=== PATIENT | male | born 1985 | race African-American/Black ===

== ENCOUNTER 2017-06-16 02:02 | Emergency (ER) | payer MEDICAID ==
[~2017-06-16] VITALS: Ht 170.2 cm; Wt 109.0 kg
[2017-06-16] MEDS ORDERED: SODIUM CHLORIDE 0.9% 1,000 ML IV ONE (02:31)
[2017-06-16] MEDS ORDERED: ONDANSETRON HCL 4MG/2ML VIAL IV STA (02:31)
[2017-06-16] MEDS ORDERED: KETOROLAC 30MG/ML VIAL IV STA (02:31)
[2017-06-16 02:48] LABS: HEMATOCRIT. 45.1 % (42.0-52.0); HEMOGLOBIN. 15.8 g/dL (14.0-18.0); MEAN CORPUSCULAR HEMOGLOBIN 30.6 pg (28.0-32.0); MEAN CORPUSCULAR VOLUME 87.3 fL (80.0-94.0); PLATELET 306 x1000/uL (130-400); RED BLOOD CELL COUNT 5.17 mill/uL (4.7-6.1)
[2017-06-16 03:00] LABS: CARBON DIOXIDE 26 mEq/L (21-32); CHLORIDE 105 mEq/L (98-107)
[2017-06-16 03:27] LABS: PLATELET ESTIMATE NORMAL
[2017-06-16 06:00] VITALS: BP 120/80
[2017-06-16] MEDS ORDERED: SODIUM CHLORIDE 0.9% 10ML VIAL ONE (13:07)
[2017-06-16] MEDS ORDERED: IOHEXOL-300 100 ML BOTTLE ONE (13:07)
== END 2017-06-16 06:00 | disposition home or self-care (01) ==
LOC: ER 02:09
DX: M54.2 Cervicalgia (principal); R10.9 Unspecified abdominal pain; V49.88XA Car occupant (driver) (passenger) injured in other specified transport accidents, initial encounter; Y93.89 Activity, other specified; Y92.410 Unspecified street and highway as the place of occurrence of the external cause; Y99.8 Other external cause status
CPT/HCPCS: 36415; 72125; 74177; 80048; 85025; 96361; 96374; 96375; 99285; A4216; J1885; J2405; J7030; Q9967; Z7610